=== PATIENT | male | born 1950 | race African-American/Black ===

== ENCOUNTER 2022-06-02 05:57 | Day surgery (SDC) | payer OTHER ==
[~2022-06-02] VITALS: Ht 188 cm; Wt 122.5 kg
[2022-06-02] MEDS ORDERED: MEPERIDINE 100 MG INJ. 100 MG/ML VIAL ONE (06:51)
[2022-06-02] MEDS ORDERED: SIMETHICONE 40 MG/0.6 ML ML ONE (06:51)
[2022-06-02] MEDS: MIDAZOLAM HCL 5 MG/5 ML VIAL ONE ×2 (08:49→08:52)
[2022-06-02 15:17] VITALS: BP_SYST 140
== END 2022-06-02 10:30 | disposition home or self-care (01) ==
LOC: SDS 05:57
PROVIDERS: ATTEND Internal Medicine Gastroenterology
DX: K59.00 Constipation, unspecified (principal); K63.5 Polyp of colon; Z85.038 Personal history of other malignant neoplasm of large intestine; K21.9 Gastro-esophageal reflux disease without esophagitis; K57.30 Diverticulosis of large intestine without perforation or abscess without bleeding; K64.8 Other hemorrhoids; Z79.899 Other long term (current) drug therapy; Z20.822 Contact with and (suspected) exposure to COVID-19
CPT/HCPCS: 36415; 45385; 88305; 99152; 99153; U0003; G0378; J2250; J2175; J7030

== ENCOUNTER 2023-04-06 07:59 | Day surgery (SDC) | payer OTHER ==
[~2023-04-06] VITALS: Ht 188 cm; Wt 117.9 kg
[2023-04-06] VITALS (11 sets, daily range): BP systolic 112–162; PULSE 64–83; RESP 18–20; TEMP 96.5–97.8; O2SAT 96–100
[~2023-04-06 07:59] MED LIST: ACETAMINOPHEN 500 MG TABLET PO ONE; CELECOXIB 200 MG CAPSULE PO ONE; GABAPENTIN 300 MG CAPSULE PO ONE; SCOPOLAMINE HYDROBROMIDE 1 MG PATCH .72 H (TRANSDERM-SCOP) TD ONE; VANCOMYCIN HCL 1,500 MG in NS 250 ML IV ONE; ceFAZolin SODIUM 2 GM in D5W 50 ML IV ONE
[2023-04-06] MEDS ORDERED: GABAPENTIN 300 MG CAPSULE ONE (08:30)
[2023-04-06] MEDS ORDERED: SCOPOLAMINE HYDROBROMIDE 1 MG PATCH .72 H (TRANSDERM-SCOP) TD ONE (08:30)
[2023-04-06] MEDS ORDERED: ACETAMINOPHEN 500 MG TABLET ONE (09:18)
[2023-04-06] MEDS ORDERED: CELECOXIB 200 MG CAPSULE ONE (09:19)
[2023-04-06] MEDS ORDERED: NETA2.5D EACH EYE (09:24)
[2023-04-06] MEDS ORDERED: CARV12.548 PO (09:24)
[2023-04-06] MEDS ORDERED: LINA145C PO (09:24)
[2023-04-06] MEDS ORDERED: AMIO200T66 PO (09:24)
[2023-04-06] MEDS ORDERED: CLOP75TA32 PO (09:27)
[2023-04-06] MEDS ORDERED: FURO-149 PO (09:27)
[2023-04-06] MEDS ORDERED: BRIN8DRO2 (09:27)
[2023-04-06] MEDS ORDERED: PANT20TA2 PO (09:27)
[2023-04-06] MEDS ORDERED: HYDR-4039 PO (09:34)
[2023-04-06] MEDS ORDERED: VITD400 PO (09:34)
[2023-04-06] MEDS ORDERED: LIP40 PO (09:34)
[2023-04-06] MEDS ORDERED: SPIR25TA PO (09:34)
[2023-04-06] MEDS ORDERED: SENN8.6T19 PO (09:34)
[2023-04-06] MEDS ORDERED: SACU1TAB PO (09:34)
[2023-04-06] MEDS ORDERED: FERR-69 PO (09:34)
[2023-04-06] MEDS ORDERED: AMLO5TAB4 PO (09:34)
[2023-04-06] MEDS ORDERED: CETI10CA PO (09:34)
[2023-04-06] MEDS ORDERED: TAMS-11 PO (09:34)
[2023-04-06] MEDS ORDERED: TRAV2.5D OP (09:34)
[2023-04-06] MEDS ORDERED: AZEL137S7 NS (09:34)
[2023-04-06] MEDS ORDERED: PROPOFOL 200MG/ 20ML VIAL (DIPRIVAN) IV ONE (11:02)
[2023-04-06] MEDS ORDERED: NORMAL SALINE 10 ML VIAL ONE (11:02)
[2023-04-06] MEDS ORDERED: LR 1,000 ML IV.SOLN IV ONE (11:02)
[2023-04-06] MEDS ORDERED: KETOROLAC TROMETHAMINE 30 MG VIAL ONE (11:02)
[2023-04-06] MEDS ORDERED: DEXAMETHASONE SOD PHOSPHATE 4 MG/ML VIAL ONE (11:02)
[2023-04-06] MEDS ORDERED: ONDANSETRON HCL 4 MG/2 ML VIAL ONE (11:02)
[2023-04-06] MEDS ORDERED: NS 1000 ML IV.SOLN IV ONE (11:02)
[2023-04-06] MEDS ORDERED: BUPIVACAINE /DEX PF 0.75% SPINAL 2 ML AMP INJ ONE (11:02)
[2023-04-06] MEDS ORDERED: SEVOFLURANE 15 MIN GAS INH ONE (11:02)
[2023-04-06] MEDS ORDERED: ceFAZolin SODIUM 1 GM VIAL ONE (11:02)
[2023-04-06] MEDS ORDERED: TRANEXAMIC ACID 1,000 MG/10 ML VIAL ONE (11:02)
[2023-04-06] MEDS ORDERED: MORPHINE SULFATE 10MG/10ML PF AMP ONE (11:02)
[2023-04-06] MEDS ORDERED: WATER FOR IRRIGATION,STERILE 1,000 ML IRRIG.SOLN IR ONE (11:02)
[2023-04-06] MEDS ORDERED: NS IRRIG SOLN 1000 ML IR ONE (11:02)
[2023-04-06] MEDS ORDERED: VANCOMYCIN HCL 1000 MG/VIAL IV ONE (11:02)
[2023-04-06] MEDS ORDERED: METOCLOPRAMIDE HCL 10 MG/2 ML VIAL IVP PRN (13:15)
[2023-04-06] MEDS ORDERED: DIPHENHYDRAMINE INJ 50 MG/ML VIAL IV PRN (13:15)
[2023-04-06] MEDS ORDERED: MORPHINE SULFATE 10MG/10ML PF AMP SP SCH (13:15)
[2023-04-06] MEDS ORDERED: ONDANSETRON HCL 4 MG/2 ML VIAL IVP PRN (13:15)
[2023-04-06] MEDS ORDERED: HYDROmorphone 1 MG/ML INJ. CARTRIDGE IVP PRN (13:15)
[2023-04-06] MEDS ORDERED: KETOROLAC TROMETHAMINE 30 MG VIAL IVP PRN (13:15)
[2023-04-06] MEDS ORDERED: NALOXONE HCL 0.4 MG/ML AMP (NARCAN) IVP PRN (13:15)
[2023-04-06] MEDS: oxyCODONE HCL 5 MG TABLET PO PRN ×2 (16:28→21:00)
[2023-04-06] MEDS: CEFAZOLIN 1 GM IVPB PREMIX 50 ML IV SCH (17:55)
[2023-04-06] MEDS: APIXABAN 2.5 MG TABLET PO SCH (20:59)
[2023-04-07 00:03] VITALS: BP_SYST 128; PULSE 80; RESP 20; TEMP 97.5; O2SAT 100
[2023-04-07] MEDS: CEFAZOLIN 1 GM IVPB PREMIX 50 ML IV SCH (00:03)
[2023-04-07] MEDS: oxyCODONE HCL 5 MG TABLET PO PRN ×3 (05:31→14:23)
[2023-04-07 07:35] VITALS: BP_SYST 114; PULSE 67; RESP 16; TEMP 98.8; O2SAT 99
[2023-04-07] MEDS: APIXABAN 2.5 MG TABLET PO SCH (10:28)
[2023-04-07 14:17] VITALS: BP_SYST 114; PULSE 76; RESP 16; TEMP 98.8; O2SAT 99
[2023-04-07] MEDS ORDERED: APIX2.5T PO (14:41)
== END 2023-04-07 14:50 | disposition home health service (06) ==
LOC: SDS 07:59 → SMU 08:00 → STU 19:21 → SDS 04-07 14:50
PROVIDERS: ATTEND Orthopaedic Surgery
DX: M16.12 Unilateral primary osteoarthritis, left hip (principal); K21.9 Gastro-esophageal reflux disease without esophagitis; J44.9 Chronic obstructive pulmonary disease, unspecified; I25.10 Atherosclerotic heart disease of native coronary artery without angina pectoris; E66.01 Morbid (severe) obesity due to excess calories; I48.91 Unspecified atrial fibrillation; E78.5 Hyperlipidemia, unspecified; I50.9 Heart failure, unspecified; I11.0 Hypertensive heart disease with heart failure; E11.9 Type 2 diabetes mellitus without complications; G47.33 Obstructive sleep apnea (adult) (pediatric); Z99.89 Dependence on other enabling machines and devices; Z79.899 Other long term (current) drug therapy; Z68.35 Body mass index [BMI] 35.0-35.9, adult; Z88.1 Allergy status to other antibiotic agents
CPT/HCPCS: 27130; 86886; 86900; 86901; 87081; 36415; 93306; 73502; 73501; 88304; 88311; 97162; 97110; 97530; 97116; J3370 ×2; J3490 ×2; J0690 ×2; J1100; J1885; J2405; J2704; J2274; J7060; J7120; J7050; J7030; C1776